=== PATIENT | male | born 1985 | race African-American/Black ===

== ENCOUNTER 2018-01-06 19:54 | Observation (INO) | payer SELFPAY ==
[2018-01-06 21:55] LABS: #Basophils 0.1 thou/uL (0.0-0.2); #Eosinphils 0.1 thou/uL (0.0-0.7); #Lymphocytes 1.7 thou/uL (1.20-3.40); #Monocytes 0.7 thou/uL (0.11-0.59); #Neutrophils 3.7 thou/uL (1.40-6.50); %Basophils 1.3 % (0.0-1.0); %Eosinophils 1.5 % (0.0-10.0); %Lymphocytes 27.8 % (21.0-51.0); %Monocytes 10.8 % (0.0-10.0); %Neutrophils 58.7 % (42.0-75.0); Mean Corpuscular HGB CONC 31.4 g/dL (32.0-36.0); Mean Corpuscular Hemoglobin 23.6 pg (27.0-31.0); Mean Corpuscular Volume 75.3 fl (80.0-94.0); Platelet Count 236 thou/uL (130-400); RBC Distribution Width 14.2 % (11.5-14.5); Red Blood Cell (RBC) Count 5.08 mill/uL (4.70-6.10); White Blood Cell (WBC) Count 6.3 thou/uL (4.8-10.8)
[2018-01-06 22:17] LABS: ALT (SGPT) 58 U/L (8-55); AST (SGOT) 74 U/L (5-34); Albumin 4.3 g/dL (3.5-5.0); Alkaline Phosphatase 71 U/L (40-150); Anion Gap 12 mmol/L (10-20); BUN (Urea Nitrogen) 14 mg/dL (8.9-20.6); Bilirubin, Total 1.5 mg/dL (0.2-1.2); Calc. Creatinine Clearance 0 mL/min (70-130); Calcium 9.6 mg/dL (7.8-10.44); Carbon Dioxide 27 mmol/L (22-29); Chloride 103 mmol/L (98-107); Estimated GFR-MDRD Greater than 90; Globulin 3.2 g/dL (2.4-3.5); Glucose 65 mg/dL (70-105); Protein, Total 7.5 g/dL (6.0-8.3); Sodium 139 mmol/L (136-145)
[2018-01-06 22:19] LABS: Troponin I Less than 0.010 ng/mL (< 0.028)
[2018-01-06 22:21] LABS: CKMB 8.1 ng/mL (0-6.6); Potassium 2.9 mmol/L (3.5-5.1)
[2018-01-06] MEDS ORDERED: Potassium Bicarbonate/Cit Ac 25 MEQ TAB PO SCH (22:45)
[2018-01-07 00:49] LABS: Bilirubin Small (Negative); Blood, Urine Negative (Negative); Clarity CLEAR (Clear); Glucose, Urine (Dipstick) Negative (Negative); Leukocyte Negative (Negative); Nitrite Negative (Negative); Protein, Urine (Dipstick) Trace mg/dL (Neg-Trace); Specific Gravity, Urine 1.037 (1.002-1.036)
[2018-01-07] MEDS ORDERED: Acetaminophen 325 MG TAB PO PRN ×2 (01:06→03:39)
[2018-01-07] MEDS ORDERED: Sodium Chloride 0.9% 1,000 ML IV SCH (01:06)
[2018-01-07] MEDS ORDERED: Ondansetron ODT 4 MG TAB SL PRN (01:06)
[2018-01-07] MEDS ORDERED: Ondansetron HCl/PF 4 MG/2 ML Vial IVP PRN (01:06)
[2018-01-07 01:13] LABS: Amphetamine Detected (NotDetected); Barbiturates Screen Not Detected (NotDetected); Benzodiazepine Screen Not Detected (NotDetected); Cocaine Metabolite Screen Not Detected (NotDetected); Medtox Control Line Valid? VALID (VALID); Medtox Reader # READER 4; Methadone Not Detected (NotDetected); Methamphetamine Detected (NotDetected); Opiate Screen Not Detected (NotDetected); Oxycodone Screen Not Detected (NotDetected); Phencyclidine (PCP) Not Detected (NotDetected); THC/Cannabinoid Screen Detected (NotDetected); Tricyclic Screen Not Detected (NotDetected)
[2018-01-07 01:22] VITALS: BMI 23.3
[2018-01-07] MEDS ORDERED: Guaifenesin DM 100-10/5 ML UDCUP PO PRN (03:39)
[2018-01-07] MEDS: Sodium Chloride 0.9% 1,000 ML IV SCH ×3 (03:47→20:07)
--- NOTE | 2018-01-07 05:20 | HP ---
REASON FOR ADMISSION: Rhabdomyolysis, substance abuse including methamphetamine and marijuana, tobac co abuse, hypokalemia. HISTORY OF PRESENT ILLNESS: The patient gives history of not feeling good from last night. He also complains of throat pain. The patient has no complaints of chest pain, palpitation, PND or orthopnea . No history of seizures. As this was not getting better, the patient made it to the emergency room . PAST MEDICAL AND SURGICAL HISTORY: None. CURRENT MEDICATIONS: None. ALLERGIES: No known drug allergies. PERSONAL HISTORY: Denies substance abuse. Smokes one pack a day. Works at [employer]. FAMILY HISTORY: Patient lives with his sister. Both parents are healthy as far as he knows. REVIEW OF SYSTEMS: The following complete review of systems was negative, unless otherwise mentioned in the HPI or below: Constitutional: Weight loss or gain, ability to conduct usual activities. Sk in: Rash, itching. Eyes: Double vision, pain. ENT/Mouth: Nose bleeding, neck stiffness, pain, te nderness. Cardiovascular: Palpitations, dyspnea on exertion, orthopnea. Respiratory: Shortness of breath, wheezing, cough, hemoptysis, fever or night sweats. Gastrointestinal: Poor appetite, abdom inal pain, heartburn, nausea, vomiting, constipation, or diarrhea. Genitourinary: Urgency, frequenc y, dysuria, nocturia. Musculoskeletal: Pain, swelling. Neurologic/Psychiatric: Anxiety, depressio n. Allergy/Immunologic: Skin rash, bleeding tendency. PHYSICAL EXAMINATION: GENERAL: The patient is a 32-year-old male who is currently not in any acute distress. VITAL SIGNS: Blood pressure 130/100, pulse 90 per minute, respiratory rate 16 per minute, temperatur e 98.5 degrees Fahrenheit, saturating 99% on room air. NECK: Supple, no elevated JVD. HEENT: Eyes, extraocular muscles intact. Pupils reacting to light. Oral cavity mucous membranes ar e moist. No exudates or congestion. CARDIOVASCULAR SYSTEM: S1, S2 heard. Regular rhythm. RESPIRATORY SYSTEM: Air entry 1+ bilateral. Scattered rhonchi plus bilateral. ABDOMEN: Soft, bowel sounds heard. No tenderness, rigidity or guarding. EXTREMITIES: No peripheral edema or calf tenderness. VASCULAR SYSTEM: Peripheral pulses 1+ bilateral, no ischemic ulcerations or gangrene. CENTRAL NERVOUS SYSTEM: No gross focal deficits seen. Patient is lethargic, but oriented well. PSYCHIATRIC: The patient's mood is euthymic. No hallucinations or delusions. LABORATORY AND X-RAY FINDINGS: White count of 6, H&H 12 and 38, platelet count 236, MCV is 75 with 5 8% neutrophils. Potassium 2.9, BUN 14, creatinine 1.0, glucose 65, total bilirubin 1.5, AST 74, ALT 58, alkaline phosphatase 71. CK level is 2493. CK-MB 8.1, troponin I less than 0.01. Albumin is 4. 3. Urine drug screen is positive for amphetamine, methamphetamine, and cannabinoids. EKG done shows normal sinus rhythm at 94 beats per minute. There are signs of LVH seen. CLINICAL IMPRESSION AND PLAN: The patient will be under observation on telemetry for rhabdomyolysis with elevated liver enzymes, substance abuse, tobacco abuse. He will be hydrated with normal saline at 100 mL per hour. The patient's EKG shows LVH strain pattern and likely has been abusing drugs for a long time. We will obtain echo with 2D Doppler for left ventricular function and wall motion. He will also be on full dose of aspirin now. Code status was discussed with the patient. He is FULL C ODE. The patient's CK levels, if it is still trending up with elevated liver enzymes, he should qual anamaria for inpatient status for further hydration. His renal function appears to be stable with serum b icarbonate of 27 at present.
[2018-01-07] MEDS: Aspirin 325 MG TAB PO SCH (09:39)
[2018-01-07] MEDS: Famotidine 20 MG TAB PO SCH ×2 (09:40→20:07)
[2018-01-07] MEDS: Enoxaparin Sodium 40 MG/0.4 ML SYRINGE SC SCH (09:41)
[2018-01-07] MEDS ORDERED: Potassium Chloride 20 MEQ TAB PO SCH (12:00)
--- NOTE | 2018-01-07 14:27 | PDOC.PN ---
- Subjective Encounter Start Date: 01/07/18 Encounter Start Time: 10:00 - Objective Resuscitation Status: Resuscitation Status FULL:Full Resuscitation Vital Signs & Weight: Vital Signs (12 hours) Temp Pulse Resp BP Pulse Ox 01/07/18 11:25 97.9 F 70 16 103/62 97 01/07/18 08:17 98.1 F 74 16 123/83 98 01/07/18 08:00 98.1 F 74 16 Weight Weight 140 lb I&O: 01/06/18 01/07/18 01/08/18 06:59 06:59 06:59 Intake Total 865 600 Output Total 300 Balance 865 300 Result Diagrams: 01/06/18 21:43 01/06/18 21:43 Phys Exam - Physical Examination Constitutional: NAD HEENT: PERRLA, moist MMs, sclera anicteric, oral pharynx no lesions Neck: no nodes, no JVD Respiratory: no wheezing, no rales, no rhonchi, clear to auscultation bilateral Cardiovascular: RRR, no significant murmur Gastrointestinal: soft, non-tender, no distention, positive bowel sounds Musculoskeletal: no edema Neurological: non-focal Psychiatric: normal affect Dx/Plan (1) Rhabdomyolysis Code(s): M62.82 - RHABDOMYOLYSIS Status: Acute Plan: Likely secondary to drug use. UDS positive for Meth and marijuana. Patient reports use of Extacy and marijuana. Denies ever using IVD. Extacy and/or meth could result in rhabdo. Continue IVF and monitoring CK until safely cleared. Monitor renal function. (2) Drug intoxication Code(s): F19.929 - OTH PSYCHOACTIVE SUBSTANCE USE, UNSP WITH INTOXICATION, UNSP Status: Acute Plan: Does not appear to have any evidence of intoxication at this time. Continue IVF. Denies daily use and low risk of W/D sxs. - Plan * . above
[2018-01-08 04:00] VITALS: TEMP 97.5
[2018-01-08 05:18] LABS: ALT (SGPT) 35 U/L (8-55); AST (SGOT) 36 U/L (5-34); Albumin 3.2 g/dL (3.5-5.0); Alkaline Phosphatase 50 U/L (40-150); Anion Gap 7 mmol/L (10-20); BUN (Urea Nitrogen) 4 mg/dL (8.9-20.6); Bilirubin, Total 0.4 mg/dL (0.2-1.2); CK (CPK) 785 U/L (30-200); Calc. Creatinine Clearance 137 mL/min (70-130); Calcium 8.5 mg/dL (7.8-10.44); Carbon Dioxide 27 mmol/L (22-29); Chloride 107 mmol/L (98-107); Estimated GFR-MDRD Greater than 90; Globulin 2.3 g/dL (2.4-3.5); Glucose 87 mg/dL (70-105); Potassium 3.7 mmol/L (3.5-5.1); Protein, Total 5.5 g/dL (6.0-8.3); Sodium 137 mmol/L (136-145)
[2018-01-08] MEDS: Sodium Chloride 0.9% 1,000 ML IV SCH (06:31)
[2018-01-08 08:27] VITALS: BP 119/72
[2018-01-08] MEDS: Aspirin 325 MG TAB PO SCH (08:30)
[2018-01-08] MEDS: Famotidine 20 MG TAB PO SCH (08:31)
[2018-01-08] MEDS: Enoxaparin Sodium 40 MG/0.4 ML SYRINGE SC SCH (08:35)
--- NOTE | 2018-01-08 10:21 | DIS ---
DATE OF ADMISSION: 01/07/2018 DATE OF DISCHARGE: 01/08/2018 DISCHARGE DIAGNOSES: 1. Rhabdomyolysis. 2. Acute drug intoxication with methamphetamine, marijuana, MDMA. HISTORY: This patient is a 32-year-old male who presented to the emergency department feeling poorly and feeling somewhat anxious. His workup was notable for a positive drug screen for amphetamine, me thamphetamine, and marijuana. The patient was also noted to have some rhabdomyolysis with CK of 2493 . He had elevated liver enzymes with a total bilirubin of 1.65, AST 74 and ALT 58. He was also note d to be hypokalemic with potassium of 2.9. Troponin was normal. HOSPITAL COURSE: The patient was placed in observation. He was hydrated because of the mild rhabdom yolysis. His potassium was repleted. Subsequent labs revealed normalization of his potassium of 3.7 . His CK came down to 785. Of note, his albumin was also at 3.2. The patient felt well, had no mus culoskeletal symptoms and was prepared for discharge to home. DISPOSITION: Patient will be discharged to home. He has no home medications. He is encouraged to c harshad to push fluids today and remain on a regular diet. He is encouraged to establish with PCP wi th whom he can follow up and he is asked to follow up at the Emergency Department should he have any further problems prior to that time. The patient understands fully that his issues or complications of the drug use.
== END 2018-01-08 09:26 | disposition home or self-care (01) ==
LOC: ERS 19:54 → 2SW 23:28
PROVIDERS: ADMIT Internal Medicine; ATTEND Internal Medicine
DX: M62.82 Rhabdomyolysis (principal); F15.10 Other stimulant abuse, uncomplicated; F12.10 Cannabis abuse, uncomplicated; F17.210 Nicotine dependence, cigarettes, uncomplicated; E87.6 Hypokalemia
CPT/HCPCS: 36415; 80053; 80306; 81003; 82550; 82553; 84484; 85025; 93005; 93306; 96360; 96361; A4216; G0378; J1650